=== PATIENT | female | born 2005 ===

== ENCOUNTER 2025-02-01 21:28 | Observation (INO) ==
[2025-02-01] MEDS: ONDANSETRON 4 MG/2 ML VIAL IVP PRN (22:00)
[2025-02-01 22:03] LABS: HCT - HEMATOCRIT 39.6 % (37.0-47.0); HGB - HEMOGLOBIN 13.4 g/dL (12.0-16.0); MEAN PLATELET VOLUME 9.8 fL (7.9-10.8); NRBC ABSOLUTE COUNT (AUTO) 0.00 x10^3/uL; NUCLEATED RED BLOOD CELLS AUTO 0.0 /100WBC; PLT - PLATELET COUNT 238 10^3/uL (130-450); RED CELL DISTRIBUTION WIDTH 13.3 % (12.0-15.0)
[2025-02-01] MEDS: LACTATED RINGERS 1,000 ML IV ONE (22:06)
[2025-02-01 22:13] LABS: ALT ALANINE AMINOTRANSFERASE 11.0 IU/L (10-60); AST ASPARTATE AMINOTRANSFERASE 11.0 IU/L (10-42); BUN - BLOOD UREA NITROGEN 11.0 mg/dL (6-20); CARBON DIOXIDE - CO2 20.0 mmol/L (21-32); CREATININE 0.4 mg/dL (0.6-1.3); GFR - MDRD 203.0 (>89)
--- NOTE | 2025-02-01 22:47 | PROVIDER PROGRESS NOTE ---
HPI Current : Vital Signs Temperature 98.4 F 02/01/25 21:43 Pulse Rate 114 H 02/01/25 21:43 Respiratory Rate 19 02/01/25 21:43 Blood Pressure 118/69 02/01/25 21:43 Plan Plan: S: Stephany is a 19yo @ 39.2wks gestation by first trimester ultrasound who presents to [facility] with c/o excessive vomiting and feelings of dehydration. She states she been vomiting consistently for the entirety of the day today. She denies vaginal bleeding, leakage of fluid or contractions. She reports +FM. In addition to the vomiting she has been experiencing intermittent loose stools throughout the day. She has tried her best to maintain fluid intake but has not been able to consistently keep water down. When she started to feel weak and dizzy she felt it was necessary for her to come in for evaluation and management. She reports occasional mild abdominal cramping but nothing overly painful or consistent. She feels it is more GI related than related as her stomach is not feeling consistently tight when the cramping occurs. O: FHR baseline 150s, moderate variability, + accels, no decels Contractions palpate mild every 2-5 minutes with soft resting tone SVE 1/75/-3, posterior. Soft. Vertex with intact membranes. IV hydration initiated with 1000ml LR over an hour IV Zofran 4mg administered WBC 12.1 Hgb/Hct 13.4/39.6 NA 137 K 3.6 Cr 0.4 AST 11 ALT 11 Assessment/Plan: Dehydration due to excessive vomiting -initially improved with zofran and LR administration. When patient was up to the bathroom approximately 1 hour after last check she became nauseous and vomiting again. -Reglan 10mg IV administered Rule out labor -Repeat SVE 2 hours after initial check: 3/75/-3, posterior. soft. and vertex with intact membranes. Plan: Admit to [facility] for expectant management. FINAL DIAGNOSIS: Nausea and vomiting in , third trimester Early labor
[2025-02-01] MEDS ORDERED: PROMETHAZINE 25 MG SUPP PR PRN (23:00)
[2025-02-01] MEDS ORDERED: METOCLOPRAMIDE 10 MG/2 ML VIAL ONE (23:17)
[2025-02-01] MEDS: METOCLOPRAMIDE 10 MG/2 ML VIAL IVP PRN (23:20)
[2025-02-01] MEDS ORDERED: SODIUM CHLORIDE FLUSH 0.9% 10 ML SYRINGE IVP SCH (23:45)
[2025-02-01] MEDS ORDERED: fentaNYL 100 MCG/2 ML VIAL IVP PRN (23:51)
[2025-02-01] MEDS ORDERED: LABETALOL 20 MG/4 ML SYRINGE IVP PRN ×3 (23:51)
[2025-02-01] MEDS ORDERED: METHYLERGONOVINE 0.2 MG/ML VIAL IM PRN (23:51)
[2025-02-01] MEDS ORDERED: CARBOPROST TROMETHAMINE 250 MCG/ML VIAL IM PRN (23:51)
[2025-02-01] MEDS ORDERED: TERBUTALINE 1 MG/ML VIAL SUBQ PRN (23:51)
[2025-02-01] MEDS ORDERED: TRANEXAMIC ACID IN NACL 1,000 MG/100 ML BAG IV PRN (23:51)
[2025-02-01] MEDS ORDERED: SODIUM CHLORIDE FLUSH 0.9% 10 ML SYRINGE IVP PRN (23:51)
[2025-02-01] MEDS ORDERED: hydrALAZINE INJ 20 MG/ML VIAL IVP PRN (23:51)
[2025-02-01] MEDS ORDERED: OXYTOCIN 10 UNIT/ML VIAL IM PRN (23:51)
[2025-02-01] MEDS ORDERED: OXYTOCIN/SODIUM CHLORIDE 500 ML IV PRN (23:51)
--- NOTE | 2025-02-01 23:51 | HISTORY & PHYSICAL EXAMINATION ---
Admit History Smoking Status: Never smoker HPI Current : Vital Signs Temperature 98.4 F 02/01/25 21:43 Pulse Rate 114 H 02/01/25 21:43 Respiratory Rate 19 02/01/25 21:43 Blood Pressure 118/69 02/01/25 21:43 Meds/Allgy Home Medications Ambulatory Orders Medication Instructions Recorded Confirmed vits no.126-ferrous fum 1 tab PO QDAY 5 02/01/25 28 mg iron-folic acid 800 mcg tablet (Classic ) blood sugar diagnostic (True #100 ea 12/06/24 01/20/25 Metrix Glucose Test Strip) blood-glucose meter (True Metrix #1 ea 12/06/24 Air Glucose Meter) lancets 21 gauge (Color Lancets) #100 ea 12/06/2407/10 ondansetron HCl 4 mg tablet 4 mg PO Q6H PRN nausea and 02/01/25 vomiting #30 tabs Allergies Allergies Allergy/AdvReac Type Severity Reaction Status Date / Time No Known Drug Allergies Allergy Verified 02/01/25 21:25 PFSH Active Problems All Active Problems (Updated 02/01/25 @ 21:25 by Lucho Clinton MD) Pelvic pain affecting (Acute) Hematemesis (Acute) Abnormal ultrasound (Acute) Dilation of renal pelvis of fetus (Acute) Anemia complicating (Acute) Prurigo of in second trimester (Acute) Vomiting affecting (Acute) Pelvic pain affecting (Acute) Encounter for other specified screening (Acute) Encounter for supervision of normal , unspecified, first trimester (Acute) Positive test (Acute) Medical History Medical History (Updated 02/01/25 @ 21:25 by Lucho Clinton MD) Normal first confirmed, currently in second trimester No pertinent past medical history Surgical History Surgical History No pertinent past surgical history Family History Family History Brother Asthma Social History Social History (Updated 10/14/24 @ 13:38 by ERNIE Silvestre) Smoking Status: Never smoker Second hand tobacco smoke exposure: No Do you dip or chew tobacco?: No Do you vape?: No Living arrangement: At home Level: Independent Do you feel safe in your home environment?: Yes History of physical, verbal, emotional, or financial abuse?: No ETOH Use: None Substance Use: denies use Are you sexually active?: Yes Occupation - Current: [employer] Patient has POLST: No Physical Abdominal Exam Vital Signs: Temp Pulse Resp BP 98.4 F 114 H 19 118/69 02/01/25 21:43 02/01/25 21:43 02/01/25 21:43 02/01/25 21:43 Plan for Labor Plan For Labor I expect patient to be DC'd or transferred within 96 hours.: Yes Plan for Labor: Stephany presented to [facility] this evening with c/o nausea and vomiting with feelings of dehydration secondarily. She has been vomiting consistently throughout the day today. Upon arrival she was noted to be 1/75/-3, posterior and vertex with intact membranes. She was given 1000mg IV LR over an hour and IV zofran in addition to IV reglan for nausea and vomiting which improved her symptoms. Cervical exam an hour later noted cervical change to 3/75/-3, posterior and vertex with intact membranes. She has been a patient of [facility] for the duration of her which has been complicated by anemia that improved with IV Iron infusions and oral FeSO4 supplementation. In addition, she was noted to have hematemesis due to excessive vomiting in her first trimester which has resolved. She will be admitted to [facility] in early labor. She is supported by her partner Chaka today. In the event of an emergency, ACCEPTS the administration of blood products FOB: Chaka It's [employer] BOY! PROBLEM: -Anemia complicating : -Iron infusion ordered 09/30/2024 -FeSO4 supplement initiated -Repeat CBC with Ferritin in 4 weeks 10/27/2024 ED visit: Hematemesis. Started on Carafate and PPI. Chest x-ray shows a very questionable amount of atelectasis versus infiltrate in the right lower lung. Followed up with PCP. PCP ordered endoscopy. CNM discussed that considering anesthesia is only recommended if benefit outweigh the risk. Reviewed that general surgeon stated it would be unlikely to change the plan to complete. 12/2024 ED visit: Visiting family in [place]. Experienced episode of vaginal bleeding at 36wks gestation. SVE closed/thick/high, no contractions appreciated via tocometry, cervical length assessment - long. -Patient given Betamethasone x 2. Medical Hx: no significant Surgical Hx: none Social Hx: Monogamous with male partner Chaka who is a [place]. Stopped drinking alcohol due to . Denies current use of tobacco, marijuana or other recreational drugs. Reports that she is safe in current relationship. Family Hx: Denies family history of congenital anomalies, Cystic Fibrosis or chromosomal abnormalities; Asthma - brother Allergies: NKDA Medications: PNV LMP: unknown ALDO by US: 02/06/2025 U/S: 06/21/2024 w/ ALDO of 02/06/2025 Final ALDO: 02/06/2025 Pre- weight: 126 BMI: 23.0 Blood type: A+ Antibody screen: Negative CBC: PLT HCT HGB 9.9/29.5 262 (09/30) Rubella: Immune VZV: NR HBsAg: Negative HepC: NR RPR/AB-EIA: NR HIV: NR Flu: 11/2023 COVID: x 3 PAP: N/A GC/CT: 07/19/2024 neg HSV: denies in self and partner Genetic screening: NIPT Negative FAS: ordered, not scheduled Placenta: anterior w/o previa Cord: 3VC MOE: WNL EFW: 641.9 95% 50gm GCT: profiling - unable to tolerate glucola TDAP: 11/08/2024 Breast Pump:11/08/2024 3rd trimester H/H PLT 3rd trimester RPR RSV: next visit GBS: negative Physical Exam: Normocephalic, atraumatic Heart RRR w/o M/G/R Lungs CTAB Abdomen gravid, soft, nontender FHR baseline 160s, moderate variability, + accels, no decels Contractions palpate moderate every 2-5 minutes with soft resting tone SVE 3/75/-3, posterior, soft. Vertex with intact membranes EFW 3300g Bilateral LE's no edema Mood is good. Tired Assessment: 19yo @ 39.2wks gestation by 7wk U/S Early labor GBS neg FHR Category II - overall reassuring Plan: Admit to [facility] for expectant management Continuous monitoring Encouraged ambulation and position changes. Jacuzzi PRN. Nitrous oxide PRN. Epidural per maternal request. Anticipate . Conclusion/Plan Lab Results 02/01/25 21:45 02/01/25 21:45
[2025-02-02] MEDS: LACTATED RINGERS 1,000 ML IV SCH (00:15)
[2025-02-02] MEDS: LACTATED RINGERS 1,000 ML IV PRN (03:33)
[2025-02-02 09:35] VITALS: O2SAT 96
--- NOTE | 2025-02-02 09:52 | Discharge Summary ---
Discharge Summary HOSPITAL COURSE Hospital Course: Stephany presented to [facility] the evening of 02/01/2025 @ 39+2 weeks gestation c/o nausea and vomiting with feelings of dehydration secondarily. She had been vomiting consistently throughout the day. Upon arrival she was noted to be 1/75/-3, posterior and vertex with intact membranes. She was given 1000mg IV LR over an hour and IV zofran in addition to IV reglan for nausea and vomiting which improved her symptoms. Cervical exam an hour later noted cervical change to 3/75/-3, posterior and vertex with intact membranes and she was admitted just before midnight on 02/01/2025. Approximately 9 hours later her cervix was rechecked and was unchanged. Feeling significant improvement to hydration and slowed nausea and vomiting. Would like to go home and rest vs be induced today as some of her milder GI symptoms continue. Reviewed when to reach out to assisted living assistant nutritionalist and reviewed labor precautions at length. She has a scheduled IOL on Thursday if labor doesn't onset prior to that time. Category I monitoring. Tracing REACTIVE FHR baseline 130, moderate variability, + accelerations, no concerning decelerations. Paolo now very irregularily but sleeping through the contractions. No outpatient medication changes made as part of her stay. She is being discharged undelivered. ALLERGIES Allergies Allergy/AdvReac Type Severity Reaction Status Date / Time No Known Drug Allergies Allergy Verified 02/01/25 21:25 MEDICATIONS Ambulatory Orders Medication Instructions Recorded Confirmed vits no.126-ferrous fum 1 tab PO DAILY 02/02/25 28 mg iron-folic acid 800 mcg tablet (Classic ) blood sugar diagnostic (True #100 ea 12/06/24 01/20/25 Metrix Glucose Test Strip) blood-glucose meter (True Metrix #1 ea 12/06/24 Air Glucose Meter) lancets 21 gauge (Color Lancets) #100 ea 12/06/2407/10 ondansetron HCl 4 mg tablet 4 mg PO Q6H PRN nausea and 02/01/25 02/02/25 vomiting #30 tabs PHYSICAL EXAM AT DISCHARGE Vital Signs: Vital Signs x48h Temp Pulse Resp BP Pulse Ox 02/02/25 10:03 36.8 C 113 H 17 118/66 02/02/25 08:35 36.7 C 118 H 16 110/61 96 LABS 02/01/25 21:45 02/01/25 21:45 Discharge Plan Discharge Patient Disposition: 01 Home, Self Care Medically Cleared Date:: 02/02/25 Prescriptions: Continued ondansetron HCl 4 mg tablet 4 mg PO Q6H PRN (Reason: nausea and vomiting) Qty: 30 0RF (DME) blood-glucose meter [True Metrix Air Glucose Meter] Misc See Rx Instructions .ROUTE .MEDSUPPLY Qty: 1 0RF Rx Instructions: Use to take blood glucose four times daily (DME) True Metrix Glucose Test Strip Strip See Rx Instructions .ROUTE .MEDSUPPLY Qty: 100 0RF Rx Instructions: Use to take blood glucose four times per day (DME) lancets [Color Lancets] 21 gauge misc See Rx Instructions .ROUTE .MEDSUPPLY Qty: 100 2RF Rx Instructions: Use to take blood glucose 4x/day. May substitute per formulary Classic 28 mg iron- 800 mcg tablet 1 tab PO DAILY Print Language: Belarusian Patient Instructions: Labor Induction, Labor: Preparing for the Hospital, Labor Childbirth Physical Changes, Labor Pain Management, Labor Delivery Support Person, ED False Labor Follow-up Care: GALINDO COBOS FNP [Primary Care Provider, Family Nurse Practitioner] Luz Marina Zuniga CNM SWITCHING CLERK [Provider Admit Priv/Credential, Obstetrics/Gynecology] Vitals documented within 30 minutes of discharge?: Yes
--- NOTE | 2025-02-02 09:55 | PHARMACY PROGRESS NOTE ---
Best Possible Medication History Admit Date and Time: 02/01/25 2351 Home Medications Medication Instructions Recorded Confirmed Type vits no.126-ferrous fum 1 tab PO DAILY 02/02/25 History 28 mg iron-folic acid 800 mcg tablet (Classic ) blood sugar diagnostic (True #100 ea 12/06/24 01/20/25 Rx Metrix Glucose Test Strip) blood-glucose meter (True Metrix #1 ea 12/06/24 Rx Air Glucose Meter) lancets 21 gauge (Color Lancets) #100 ea 12/06/2407/10 Rx ondansetron HCl 4 mg tablet 4 mg PO Q6H PRN nausea and 02/01/25 02/02/25 Rx vomiting #30 tabs Processed by: Pharmacy (Medication reconciliation completed by Chronograph OperatorRui) Medications reviewed in ED?: No Medication History completed: Yes Patient Interview: Completed Secondary Source(s): Insurance records [facility] Statement: As the person ultimately responsible for medication therapy, providers are able to order a medication from an existing home medication list in [facility] via the "Reconcile Routine" prior to Confirmation of that medication by client support manager. Such practice is discouraged except when the physician, in their clinical judgment, deems that a medical need exists for a medication without regard to previous use.
[2025-02-02 10:19] VITALS: BP 118/66; TEMP 98.2
== END 2025-02-02 10:10 | disposition home or self-care (01) ==
LOC: WFO 21:28 → FBP 21:30 → INTOOBSV 23:51
PROVIDERS: ADMIT Nurse Practitioner Obstetrics & Gynecology; ATTEND Nurse Practitioner Obstetrics & Gynecology
DX: E86.0 Dehydration; O99.213 Obesity complicating pregnancy, third trimester; Z3A.39 39 weeks gestation of pregnancy; O99.013 Anemia complicating pregnancy, third trimester; O21.2 Late vomiting of pregnancy